=== PATIENT | female | born 2000 | race Caucasian/White ===

== ENCOUNTER 2023-07-18 10:24 | Outpatient (CLI) | payer MEDICAID, SELFPAY ==
--- NOTE | 2023-07-18 10:15 | CRLHL7_ITS ---
For Patients: As a result of the Century Cures Act, medical imaging exams and procedure reports are released immediately into your electronic medical record. You may view this report before your referring provider. If you have questions, please contact your health care provider. INDICATION: BLEEDING IN EARLY COMPARISON: None. TECHNIQUE: Real-time landers-scale imaging of the pelvis was performed. FINDINGS: There is no intrauterine or ectopic . Trace physiologic free fluid noted. Simple right ovarian cyst measuring 2.7 x 2.6 x 2.8 cm. Right ovary measures 4.8 x 3.5 x 3.6 cm. Left ovary measures 3.8 x 3.0 x 2.2 cm. Endometrial thickness 1.3 cm. No ovarian torsion. IMPRESSION: No intrauterine or ectopic . Dictated by Sumeet Fierro MD @ 07/18/2023 11:21:09 AM (Electronically Signed)
== END 2023-07-18 10:25 | disposition home or self-care (01) ==
LOC: US 10:24
PROVIDERS: PCP Nurse Practitioner Family; Visit Provider Registered Nurse
DX: O20.9 Hemorrhage in early pregnancy, unspecified (principal)
CPT/HCPCS: 76817; 84702; 86850; 86900; 86901; 87491; 87591; 93976

== ENCOUNTER 2023-07-20 09:23 | Outpatient (CLI) | payer MEDICAID, SELFPAY | END 2023-07-20 09:24 | disposition home or self-care (01) | LOC: NFLDREF 07-24 11:17 | PROVIDERS: PCP Nurse Practitioner Family; Referring Provider Nurse Practitioner Family; Visit Provider Registered Nurse | DX: O20.9 Hemorrhage in early pregnancy, unspecified (principal) | CPT/HCPCS: 84702 ==

== ENCOUNTER 2023-10-23 12:51 | Outpatient (CLI) | payer MEDICAID, SELFPAY ==
--- NOTE | 2023-10-23 13:00 | CRLHL7_ITS ---
For Patients: As a result of the Century Cures Act, medical imaging exams and procedure reports are released immediately into your electronic medical record. You may view this report before your referring provider. If you have questions, please contact your health care provider. INDICATION: First trimester scan, establish dates. COMPARISON: None. TECHNIQUE: Real-time landers-scale imaging of the pelvis was performed. FINDINGS: Sonographic imaging demonstrates a single living intrauterine gestation. The embryo demonstrates a cardiac rate measuring 106 beats per minute. The embryo`s crown-rump length measurement of 0.4 cm corresponds to a gestational age of 6 weeks 1 day with a sonographic due date of 06/16/2024. There is a normal-appearing yolk sac. There are no gross abnormalities noted within the embryo at this early state of development. The gestational sac has a normal appearance. There is no evidence of a perigestational hemorrhage. The amount of fluid within the sac appears appropriate for gestational age. The cervix is closed. The myometrium appears normal. Corpus luteal cyst right ovary. Normal left ovary. There are no suspicious fluid collections noted in the cul-de-sac. IMPRESSION: Single living intrauterine with sonographic gestational age 6 weeks 1 day and sonographic due date 06/16/2024. heart rate is lower end of normal. Follow-up in 2 weeks recommended. Dictated by Sumeet Fierro MD @ 10/24/2023 10:40:39 AM (Electronically Signed)
== END 2023-10-23 12:52 | disposition home or self-care (01) ==
PROVIDERS: PCP Nurse Practitioner Family; Visit Provider Family Medicine
DX: Z34.91 Encounter for supervision of normal pregnancy, unspecified, first trimester (principal); Z3A.01 Less than 8 weeks gestation of pregnancy
CPT/HCPCS: 76817; 86703; 86706; 86803; 86850; 86900; 86901; 87086; 87340; 87491; 87591

== ENCOUNTER 2023-10-23 14:48 | Outpatient (CLI) | payer MEDICAID, SELFPAY ==
[2023-10-23 19:40] LABS: Chlamydia DNA Amplified* NOT DETECTED (No Detected); GC DNA Amplified* NOT DETECTED (No Detected)
== END 2023-10-23 14:49 | disposition home or self-care (01) ==
PROVIDERS: PCP Nurse Practitioner Family; Visit Provider Registered Nurse
DX: Z34.91 Encounter for supervision of normal pregnancy, unspecified, first trimester (principal); Z3A.01 Less than 8 weeks gestation of pregnancy
CPT/HCPCS: 86592; 86703; 86704; 86706; 86762; 86787; 86803; 86850; 86900; 86901; 87086; 87340; 87491; 87591

== ENCOUNTER 2023-12-18 10:58 | Outpatient (CLI) | payer MEDICAID, SELFPAY | END 2023-12-18 10:59 | disposition home or self-care (01) | LOC: NFLDREF 10:59 | PROVIDERS: PCP Nurse Practitioner Family; Visit Provider Obstetrics & Gynecology | DX: O26.892 Other specified pregnancy related conditions, second trimester (principal) | CPT/HCPCS: 87086 ==

== ENCOUNTER 2024-01-29 09:02 | Outpatient (CLI) | payer MEDICAID, SELFPAY ==
--- NOTE | 2024-01-29 09:08 | US_ITS ---
Patient: ELIN JOCELYN Facility:?[facility] Patient ID:?[id number] Site Patient ID:?[id number]. Site :?[id number] Study:?US-OB Pelvis BFAS-01/29/2024 10:20:31 AM Ordering Physician:?LENNY FLEMING Final Report: OB ULTRASOUND 01/29/2024 CLINICAL HISTORY: anatomy survey. COMPARISON: 10/23/2023. FINDINGS: GA: 20 weeks 1 day. VINEET by LMP: 06/16/2024. CERVIX: Cervix: Visualized. Technique: TA. PLACENTA/CORD - TA Posterior. Placenta tip to internal os: 3.5 cm. Umbilical cord: 3 vessel. Placental insertion: Central. OBSERVED STRUCTURES: Calvarium/Spine: Cerebellum, 2 cm, 20 weeks 2 days, cisternal magna 4.1 mm, nuchal fold, 2.1 mm, lateral ventricles 6.8 mm, CSP, Midline falx, choroid plexus, spine normal. Abdomen: Stomach, abd cord insert, urinary bladder, kidneys, diaphragm. Face: Nose/Lips, orbital view, profile normal. Limbs: Upper extremities, lower extremities, hands, feet normal. Vascular: 4 chamber heart, LVOT, RVOT, 3VV, 3 VTV normal. BPD BDP: 4.6 cm, 19 weeks 5 days. 33% HC: 16.8 cm, 19 weeks 3 days. 15% AC: 15.4 cm, 20 weeks 4 days. 58% FL: 3.4 cm, 20 weeks 5 days. 64% heart rate: 138 bpm. Age by this US: 20 weeks 1 day. VINEET by this US: 06/16/2024. EFW: 357 g, 13 oz. Percentile by VINEET: 66%. MPRESSION: 1. Measurements are consistent with dates. Good interval growth since the prior exam. 2. Normal anatomic survey. Dale Mijares M.D. Body/Diagnostic Radiologist [email or web address]/gil D& Transcribed: 3:25 pm DW/Dictated by: Dale Mijares MD @ 01/29/2024 3:00:00 PM Signed by:?Dale Mijares MD @01/29/2024 3:39:26 PM (Electronic Signature)
== END 2024-01-29 09:03 | disposition home or self-care (01) ==
LOC: US 09:03
PROVIDERS: PCP Nurse Practitioner Family; Visit Provider Obstetrics & Gynecology
DX: Z34.92 Encounter for supervision of normal pregnancy, unspecified, second trimester (principal); Z3A.20 20 weeks gestation of pregnancy
CPT/HCPCS: 76805

== ENCOUNTER 2024-03-25 08:55 | Outpatient (CLI) | payer MEDICAID, SELFPAY | END 2024-03-25 08:56 | disposition home or self-care (01) | LOC: NFLDREF 03-27 07:17 | PROVIDERS: PCP Nurse Practitioner Family; Referring Provider Nurse Practitioner Family; Visit Provider Obstetrics & Gynecology | DX: Z34.93 Encounter for supervision of normal pregnancy, unspecified, third trimester (principal); Z3A.28 28 weeks gestation of pregnancy | CPT/HCPCS: 86592 ==

== ENCOUNTER 2024-04-21 10:12 | Outpatient (CLI) | payer MEDICAID, SELFPAY ==
--- NOTE | 2024-04-21 10:15 | CRLHL7_ITS ---
For Patients: As a result of the Century Cures Act, medical imaging exams and procedure reports are released immediately into your electronic medical record. You may view this report before your referring provider. If you have questions, please contact your health care provider. OBSTETRICAL ULTRASOUND LIMITED, 04/21/2024 INDICATION: Gestational diabetes mellitus. VINEET by LMP: 06/16/2024 Gestational age: 32 weeks 0 days COMPARISON: 01/29/2024, 10/23/2023. TECHNIQUE: Transabdominal obstetrical ultrasound. FINDINGS: Gestation: Single Cervix: Not visualized positioning: Transverse Amniotic fluid: 6.8 cm SDP Placenta position: Posterior heart rate: 165 bpm BIOMETRY: BPD: 8.4 cm, 33 weeks 6 days, 88% HC: 30.8 cm, 34 weeks 2 days, 76% AC: 30.2 cm, 34 weeks 1 day, 95% FL: 6.5 cm, 33 weeks 2 days, 73% FL/AC Ratio: 21.38% HC/AC ratio: 1.02 EFW: 2307 grams, 5 lbs. 1 oz. age by this ultrasound: 33 weeks 6 days VINEET by this US: 06/03/2024 Percentile by VINEET: 92% IMPRESSION: Estimated weight is now at the 92nd percentile. Abdominal circumference is at the 95th percentile. VICTORINA TITUS M.D. Body/Diagnostic Radiologist [email or web address] Transcribed: 12:[address]/Dictated by: Victorina Titus MD @ 04/22/2024 10:53:00 AM (Electronically Signed)
== END 2024-04-21 10:13 | disposition home or self-care (01) ==
LOC: US 10:13
PROVIDERS: PCP Nurse Practitioner Family; Visit Provider Obstetrics & Gynecology
DX: O24.419 Gestational diabetes mellitus in pregnancy, unspecified control (principal); Z3A.32 32 weeks gestation of pregnancy
CPT/HCPCS: 76816

== ENCOUNTER 2024-05-20 09:40 | Outpatient (CLI) | payer MEDICAID, SELFPAY ==
--- NOTE | 2024-05-20 09:45 | CRLHL7_ITS ---
For Patients: As a result of the Century Cures Act, medical imaging exams and procedure reports are released immediately into your electronic medical record. You may view this report before your referring provider. If you have questions, please contact your health care provider. INDICATION: GDM TECHNIQUE: Real time landers scale imaging of the fetus. COMPARISON: 04/21/2024 FINDINGS: Sonographic imaging demonstrates a single living intrauterine gestation. Fetus demonstrates a regular cardiac rate of 139 beats per minute. Fetus has a vertex position. The placenta lies right posterior. Amniotic fluid volume appears normal and there is a single deepest pocket of 4.7 cm. The estimated weight is 3633gm which lies at the greater than 97th %. On the prior OB ultrasound dated 04/21/2024 the estimated weight was at the 92nd percentile. BPD 78th percentile. HC 59th percentile. AC greater than 97th percentile. FL 52nd percentile. The fetus was active and demonstrated normal breathing movements. There was normal flexion and extension of the trunk and extremities. IMPRESSION: Normal biophysical profile score 8/8. Sonographic gestational age 37 weeks 6 days and sonographic due date of 06/04/2024. Sonographic age 12 days ahead of the clinical age. Estimated weight greater than 97th percentile. Abdominal circumference greater than 97th percentile. Dictated by Sumeet Fierro MD @ 05/20/2024 10:33:04 AM (Electronically Signed)
== END 2024-05-20 09:41 | disposition home or self-care (01) ==
PROVIDERS: PCP Nurse Practitioner Family; Visit Provider Obstetrics & Gynecology
DX: O24.419 Gestational diabetes mellitus in pregnancy, unspecified control (principal); Z3A.37 37 weeks gestation of pregnancy
CPT/HCPCS: 76816; 76819; 87081; 87653

== ENCOUNTER 2024-06-13 07:03 | Inpatient (IN) | payer MEDICAID, SELFPAY ==
[2024-06-13] VITALS (39 sets, daily range): BP systolic 104–171; BP diastolic 51–100; PULSE 50–88; RESP 16; TEMP 36.4–36.8; O2SAT 96–99; BMI 42.3
[2024-06-13] MEDS: LACTATED RINGERS 1000 ML 1,000 ML 125 ML IV ×2 (08:02→09:18)
[2024-06-13] MEDS: OXYTOCIN 30 unit/500 ML in NS 30 UNIT/500 ML BAG IVPB (08:03)
[2024-06-13 08:04] LABS: Basophils Absolute Auto 0.01 K/uL (0.00-0.30); Basophils Percent Auto 0.1 % (0.0-3.0); Eosinophils Absolute Auto 0.13 K/uL (0.00-0.50); Eosinophils Percent Auto 1.3 % (0.0-7.0); Hematocrit 33.4 % (33.0-51.0); Hemoglobin* 10.9 gm/dL (12.0-16.0); Immature Granulocytes Abs Auto 0.04 K/uL (0.00-0.30); Immature Granulocytes Pct Auto 0.4 %; Lymphocytes Absolute Auto 2.21 K/uL (0.90-2.90); Lymphocytes Percent Auto 22.8 % (20-44); Mean Corpuscular HGB Conc 33 gm/dL (32-36); Mean Corpuscular Hemoglobin 29 pg (26-34); Mean Corpuscular Volume 87 fL (80-100); Monocytes Percent Auto 4.7 % (0.0-11.0); Neutrophils Absolute Auto 6.86 K/uL (1.7-7.0); Neutrophils Percent Auto 70.7 % (42.0-72.0); Platelet Count* 181 K/uL (140-440); RDW Coefficient of Variation % 13.2 % (11.5-15.5); Red Blood Count 3.82 m/uL (4.00-5.20); White Blood Count* 9.71 K/uL (4.50-11.00)
[2024-06-13 08:09] LABS: Slide Review Reflex No
--- NOTE | 2024-06-13 08:33 | P.LDBA_ITS ---
Subjective History of Present Illness Time Seen by Provider: 08:33 Date Seen: 06/13/24 Narrative: Patient is being admitted to Labor and Delivery for schedule IOL but found to be in spontaneous labor when she arrived. She is a 23 year old at 39.4 weeks gestation. Her full history and physical was dictated by Dr. Liang on 05/27/24. Please see this for details. Active movement. Denies LOF, vaginal bleeding or abnormal vaginal discharge. Severo Q2-3 minutes painfully. Requesting epidural. Discussed prioritizing her epidural and then reassess her labor to see if she needs pitocin or AROM. Specific Issues/Plans G 3 P 1011 Spouse: Saran Knight H&P by CGM on 05/27/24 # GDMA1 (1h GTT 185) * Nutrition referral * QID BS monitoring * Growth US every 4 weeks * Delivery @39 0/7 - 40 6/7 weeks #Suspected macrosomia * History of macrosomia: 9 lb, 8 oz with first baby. No shoulder dystocia. OP and forceps assisted. * Recommended induction of labor at 39-40 weeks gestation, patient considering # History of anxiety and depression. Stable at 1st OB. Struggled with depression. Not taking an SSRI currently. Not seeing therapist. Declines therapy. Will consider SSRI at end of . # BMI 36 Hemoglobin A1c: 5.6 Consider weekly BPP and/or NST starting at 37 weeks Recommend daily baby aspirin starting at 12 weeks to reduce risk of preeclampsia due to BMI and the patient's sister with history of preeclampsia. # Will be due for Pap Imagin week US on 04/21: 2307g at 92%ile AC 95%ile. SDP 6.8cm. FHR 165. Growth at 36 weeks on 05/20/24: 05/20/24: cephalic, SDP 4.7, EFW 3633 g = 8 lbs, >97&, AC>97%, BPD 78%, HC 59% Flu: Completed at 1st OB visit. Covid: Booster given a 1st OB visit. TDAP: 04/07/2024 OB - Problem Based A/P Additional Plan (1) macrosomia affecting management of mother, antepartum: Status: Acute (2) Gestational diabetes mellitus (GDM) affecting , antepartum: Status: Acute (3) Anemia affecting : Status: Acute (4) : Status: Acute (5) Anxiety: Status: Acute (6) Depression: Status: Acute OB Exam Physical Exam Vital signs: Temp Pulse BP Pulse Ox 97.6 F 58 L 136/85 98 06/13/24 07:33 06/13/24 07:58 06/13/24 07:58 06/13/24 07:33 Narrative: Physical exam: General: Breathing through labor Psych: Alert and oriented x3, full affect HEENT: Normocephalic, atraumatic Lungs: Unlabored breathing Neuro: No focal deficit. Mentating appropriately Pelvic exam: /-1 per RN report
[2024-06-13] MEDS: ROPIVACAINE 0.2% 100 ml 100 ML 12 MG EPIDURAL (08:43)
[2024-06-13] MEDS: BUPIVACAINE 0.25% PF 10 ML 10 ML ML EPIDURAL (08:43)
--- NOTE | 2024-06-13 09:02 | P.ANBPRC_ITS ---
[facility] Medical History Dysuria ?R30.0 - Dysuria (ICD-10) Cellulitis of right ankle ?L03.115 - Cellulitis of right lower limb (ICD-10) Family History Mother Uterine cancer Brother Diabetes Aunt Breast cancer Social History What is your current living situation?: I presently have a place to live Problems where you live: no known problems In the past 12 months, utilities in danger of being shut off: no In past 12 months, lack of transportation kept you from medical appts, meetings, work, or getting things needed for daily living: no In the past 12 mos, have been you worried that your food would run out before you had money to buy more?: never true In the past 12 mos, the food you bought just didn't last and you didn't have money to buy more?: never true Smoking Status: Former smoker How often does anyone, including family, friends and others, physically hurt you : never How often does anyone, including family, friends and others, insult or talk down to you: never How often does anyone, including family, friends and others, threaten you with harm: never How often does anyone, including family, friends and others, scream or curse at you: never Little interest or pleasure in doing things: not at all Feeling down, depressed, or hopeless: not at all Meds Home Medications and Allergies Home Medications ?Medication ?Instructions ?Recorded ?Confirmed ?Type docosahexaenoic acid 200 mg mg PO 10/23/23 06/09/24 History capsule ( DHA) adapalene 0.3 % topical gel 1 applic topical QPM 11/22/23 06/09/24 History clindamycin phosphate 1 % lotion 1 applic topical QDAY 11/22/23 06/09/24 History Allergies Allergy/AdvReac Type Severity Reaction Status Date / Time Latex, Natural Rubber Allergy Mild hives Verified 06/09/24 08:50 Results Labs Labs: Laboratory Results - last 24 hr 06/13/24 07:54 WBC 9.71 RBC 3.82 L Hgb 10.9 L Hct 33.4 MCV 87 MCH 29 MCHC 33 RDW Coeff of Case 13.2 Plt Count 181 Neut % (Auto) 70.7 Lymph % (Auto) 22.8 [place] % (Auto) 4.7 Eos % (Auto) 1.3 Baso % (Auto) 0.1 Neut # (Auto) 6.86 Lymph # (Auto) 2.21 [place]ingo # (Auto) 0.50 Eos # (Auto) 0.13 Baso # (Auto) 0.01 Abs Immat Gran (auto) 0.04 Imm/Tot Granulo (auto) 0.4 Vital Signs Vital Signs: Last Vital Signs Temp 97.6 F 06/13/24 07:33 Pulse 77 06/13/24 08:57 BP 126/74 06/13/24 08:57 Pulse Ox 99 06/13/24 08:44 Anesthesia Procedures Epidural Insertion Patient Location: OB Start Time: 08:30 Stop Time: 09:00 Start Date: 06/13/24 Stop Date: 06/13/24 Reason for Block: procedure for pain Patient Position: sitting Performed By: Janny Jay Preanesthetic Checklist: IV checked, risks and benefits discussed, monitors and equipment checked, timeout performed and anesthesia consent Prep: chlorhexidine gluconate Monitoring: blood pressure monitoring, continuous pulse oximetry and heart rate Approach: midline Vertebral Space: lumbar (1-5) Epidural Technique: TOM saline Needle Type: Tuohy needle Injection Technique: continuous catheter Needle gauge: 17 Needle Length (cm): 10 cm Needle Insertion Depth (cm): 9 Catheter Gauge: 19 Catheter Type: multi-orifice Catheter at skin depth (cm): 14 Test Dose Result: negative and lidocaine 1.5% with epinephrine 1 to 200,000
--- NOTE | 2024-06-13 11:45 | PM.OBPNL ---
Subjective Time Seen by Provider: 11:45 Date Seen: 06/13/24 Objective Vital Signs: Last Vital Signs Temp 97.5 F L 06/13/24 11:21 Pulse 79 06/13/24 11:39 BP 127/76 06/13/24 11:39 Pulse Ox 98 06/13/24 11:10 Pelvic Exam Dilation (cm): 6 Effacement (%): 90 Station: 0 Comments: Wet perineum. Questionable SROM. Forebag noted on exam and AROM performed at 1035. Clear fluid. Assessment Status: Category l Heart Rate Baseline: 130 Clinical Research Physician Variability: Moderate (6-25) Monitor Accelerations: Present Monitor Decelerations: None
--- NOTE | 2024-06-13 12:24 | W.PM.VAGDEL1 ---
Procedure Delivery date: 06/13/24 Procedure Done: Global Procedure Details: Katy is a 23 year-old G3 P 1011 admitted on 06/13/24 at 39 and 4/7 weeks gestation for scheduled induction of labor but found to be in spontaneous labor upon arrival. Cervical exam on admission was 4 cm/60 % effaced/-1 station with membranes intact in vertex presentation. Contractions were every 2-3 minutes. GBS negative AROM occurred at 1035 on 06/13/24 with clear fluid. Labor Analgesia: Epidural Pitocin: Only in the 3rd stage Labor onset: June 13 at 0700 Complete: June 13 at 1054 Pushing: June 13 at 1104 heart tones during second stage were Cat II, prolonged deceleration after each push requiring maternal repositioning to left lateral decubitus position for resuscitative measures. Moderate variability. Positive accelerations. Recovery after repositioning. Expeditious delivery anticipated. At 1113 a viable female delivered in vertex OA presentation via spontaneous vaginal delivery. Infant was placed on maternal abdomen. Cord was clamped and cut after a 30-60 second delay. Nose and mouth were bulb suctioned. Infant weight: Pending. 8 at 1 minute and 8 at 5 minutes. Shoulder dystocia: No. Nuchal cord: Tight nuchal cord x 1. Reduced at Perineum. Placenta delivered spontaneously and complete at 1117 with a 3 vessel cord. Complications: None. Mother and were stable after delivery. Laceration(s): 1st degree perineal, repaired with 2-0 chromic. Sponge and needles counts are correct. Mother and were stable at the time of this note. Events: Labor Augmentation Intrapartal Events: Labor Augmentation Delivery augmentation: rupture of membranes (1035) Delivery monitor: external FHT Route of delivery: Indication for instrumentation: nonreassuring FHR tracing Episiotomy description: None Laceration description: Perineal - 1st Degree Delivery repair: Chromic Estimated blood loss (mL): 50 Anesthesia type: Epidural Disposition: floor Complications: None [place] Infant Gender: Female presentation: vertex Placental Delivery Description: Spontaneous Cord Description: 3 Vessels, Nuchal Cord, Tight and Reduced
[2024-06-13 12:43] LABS: Hematocrit 34.6 % (33.0-51.0); Hemoglobin* 11.1 gm/dL (12.0-16.0); Mean Corpuscular HGB Conc 32 gm/dL (32-36); Mean Corpuscular Hemoglobin 28 pg (26-34); Mean Corpuscular Volume 88 fL (80-100); Platelet Count* 194 K/uL (140-440); Red Blood Count 3.92 m/uL (4.00-5.20); White Blood Count* 10.66 K/uL (4.50-11.00)
[2024-06-13 12:56] LABS: Slide Review Reflex No
[2024-06-13 12:59] LABS: Aspartate Amino Transferase* 19 U/L (12-35); Creatinine* 0.6 mg/dL (0.5-1.5); Estimated Glomerular Filt Rate 128 ml/min
[2024-06-13 13:00] LABS: Alanine Aminotransferase* 9 U/L (4-35); Blood Urea Nitrogen* 14 mg/dL (5-24)
[2024-06-13] MEDS: ACETAMINOPHEN 500 MG TABLET 1000 MG PO ×2 (16:48→23:13)
[2024-06-13] MEDS: IBUPROFEN 600 MG TABLET PO (19:37)
[2024-06-14 04:30] VITALS: BP 141/82; PULSE 57; RESP 16; TEMP 36.6; O2SAT 97
[2024-06-14] MEDS: IBUPROFEN 600 MG TABLET PO (06:08)
[2024-06-14 07:14] LABS: Hemoglobin* 10.5 gm/dL (12.0-16.0)
[2024-06-14 08:07] VITALS: BP 113/75; PULSE 65; RESP 16; TEMP 36.6; O2SAT 97
--- NOTE | 2024-06-14 10:53 | P.DS_ITS ---
DS: Providers Provider Date Seen: 06/14/24 Date of admission: 06/13/24 07:03 Primary care physician: Rosalba Irby CNP Admitting Clinician: Kinsey Bailey MD Attending Physician on discharge: Kinsey Bailey MD Date of Discharge: 06/14/24 DS: Diagnosis Discharge Diagnosis (1) History of gestational diabetes: Status: Acute Problem details: 2 hour GTT at 6 weeks (2) (normal spontaneous vaginal delivery): Status: Acute (3) Gestational hypertension without significant proteinuria, : Status: Acute (4) Anemia: Status: Acute Exam Narrative: Exam Narrative: General: Pleasant, no acute distress Heart: Regular rate and rhythm, no murmur or gallop Lungs: Clear to auscultation bilaterally Abdomen: Soft, nontender, fundus well below umbilicus Lower extremities: No edema or erythema Const: Vital Signs, click to edit/add: Vital Signs - 24 hr 06/13/24 11:04 06/13/24 11:10 06/13/24 11:19 Temperature Pulse Rate 79 71 Pulse Rate [Pulse Oximeter] Respiratory Rate Blood Pressure 129/87 137/62 Blood Pressure [Le ft Arm] Pulse Oximetry 98 [facility] 11:21 06/13/24 11:39 06/13/24 11:48 Temperature 97.5 F L Pulse Rate 79 52 L Pulse Rate [Pulse Oximeter] Respiratory Rate Blood Pressure 127/76 127/80 Blood Pressure [Le ft Arm] Pulse Oximetry Oxygen Delivery Vt thod 06/13/24 12:03 06/13/24 12:11 06/13/24 12:33 Temperature 98.3 F Pulse Rate 57 L 52 L Pulse Rate [Pulse Oximeter] Respiratory Rate Blood Pressure 132/92 H 142/78 H Blood Pressure [Le ft Arm] Pulse Oximetry Oxygen Delivery Vt thod 06/13/24 12:49 06/13/24 13:03 06/13/24 13:18 Temperature Pulse Rate 55 L 54 L 51 L Pulse Rate [Pulse Oximeter] Respiratory Rate Blood Pressure 133/66 132/78 126/77 Blood Pressure [Le ft Arm] Pulse Oximetry Oxygen Delivery Vt thod 06/13/24 13:33 06/13/24 13:49 06/13/24 14:03 Temperature Pulse Rate 50 L 69 76 Pulse Rate [Pulse Oximeter] Respiratory Rate Blood Pressure 124/75 141/51 H 131/68 Blood Pressure [Le ft Arm] Pulse Oximetry Oxygen Delivery Me thod 06/13/24 16:29 06/13/24 19:47 06/13/24 23:42 Temperature 98.3 F 97.6 F 97.8 F Pulse Rate Pulse Rate [Pulse Oximeter] 60 60 69 Respiratory Rate 16 16 Blood Pressure Blood Pressure [Le ft Arm] 118/75 122/69 133/81 Pulse Oximetry 96 96 98 Oxygen Delivery Me thod Room Air Room Air Room Air 06/14/24 04:30 06/14/24 08:07 Temperature 97.8 F 97.9 F Pulse Rate Pulse Rate [Pulse Oximeter] 57 L 65 Respiratory Rate 16 16 Blood Pressure Blood Pressure [Le ft Arm] 141/82 H 113/75 Pulse Oximetry 97 97 Oxygen Delivery Me thod Room Air Room Air OB - DS: Summary Hospital Course Hospital Course: Katy is a 23-year-old G3 now P 2-0-1-2 woman who is status post normal spontaneous vaginal delivery at 39 weeks, 4 days gestation on 06/13/2024. She gave to a female . She had a first-degree perineal laceration. She was diagnosed with gestational hypertension during her intrapartum course. Ob problem list: # GDMA1 (1h GTT 185) Nutrition referral QID BS monitoring Growth US every 4 weeks Delivery @39 0/7 - 40 6/7 weeks #Suspected macrosomia History of macrosomia: 9 lb, 8 oz with first baby. No shoulder dystocia. OP and forceps assisted. Recommended induction of labor at 39-40 weeks gestation, patient considering # History of anxiety and depression. Stable at 1st OB. Struggled with depression. Not taking an SSRI currently. Not seeing therapist. Declines therapy. Will consider SSRI at end of . # BMI 36 Hemoglobin A1c: 5.6 Consider weekly BPP and/or NST starting at 37 weeks Recommend daily baby aspirin starting at 12 weeks to reduce risk of preeclampsia due to BMI and the patient's sister with history of preeclampsia. Blood pressures since yesterday afternoon have shown occasional mild elevations, but have been mostly normal. Today, on day 1, she is feeling well. She is her infant daughter. She denies any headache, visual changes, right upper quadrant pain. She denies any heavy bleeding. She is tolerating a regular diet. Infant Gender: Female Time Spent with Patient Time attestation: Total time spent providing and/or coordinating discharge services: Discharge Plan Discharge Disposition: Home, Self-Care Date of Admission: 06/13/24 07:03 Attending Provider on Discharge: Marry Seth Primary Care Provider: Rosalba Irby Condition: Stable Anticipated Discharge Date/Time: 06/14/24 10:57 Discharge Medications: New acetaminophen 500 mg Tablet 1,000 mg PO Q6H PRNQty: 0 0RF docusate sodium 100 mg Capsule 100 mg PO DAILY Qty: 0 0RF ibuprofen 600 mg Tablet 600 mg PO Q6H PRNQty: 0 0RF Lanolin (HPA) 100 % Cream 1 applic topical Q1H PRNQty: 0 0RF Continued DHA 200 mg capsule 200 mg PO DAILY adapalene 0.3 % gel 1 applic topical QPM clindamycin phosphate 1 % lotion 1 applic topical QDAY ferrous sulfate 324 mg (65 mg iron) tablet,delayed release (DR/EC) 324 mg PO Q OTHER DAY Qty: 60 0RF No Action (DME) Test Strips Misc See Rx Instructions .MEDSUPPLY Qty: 100 3RF Rx Instructions: Test blood sugar 4 times daily (DME) lancets Misc See Rx Instructions .MEDSUPPLY Qty: 100 3RF Rx Instructions: Test blood sugar 4 times daily. (DME) Blood Glucose Meter Misc See Rx Instructions .MEDSUPPLY Qty: 1 0RF Rx Instructions: As directed Discharge Orders: Discharge Order (Routine); Ordered 06/14/24 Ordered By: Marry Seth Patient Education: OB High Blood Pressure DC, OB Vaginal/Breast Feeding Activity Detail: Nothing per vagina until bleeding stops Discharge Diet: Regular Follow Up Appointments: Rosalba Irby CNP [Primary Care Provider] - Marry Seth MD [Staff Physician] - Forms: [facility] Info Instructions Discharge Comments: Blood pressure check Sunday. 2 and 6 week visits DS:Data Additional Comments Additional comments: Labs from 06/13/2024 at 12:36 p.m.: Hemoglobin 11.1, platelets 194, BUN 14, creatinine 0.6, AST 19, ALT 9 Labs from 06/14/2024: Hemoglobin 10.5
[2024-06-14 13:05] VITALS: BP 109/72; PULSE 59; RESP 16; TEMP 36.4; O2SAT 98
[2024-06-16 01:35] LABS: Rapid Plasma Reagin (RPR) Non Reactive (Non Reactive)
== END 2024-06-14 15:45 | disposition home or self-care (01) | DRG 807 ==
PROVIDERS: Admitting Provider Obstetrics & Gynecology; PCP Nurse Practitioner Family; Visit Provider Obstetrics & Gynecology
DX: O24.420 Gestational diabetes mellitus in childbirth, diet controlled (principal); Z37.0 Single live birth; O13.4 Gestational [pregnancy-induced] hypertension without significant proteinuria, complicating childbirth; O76 Abnormality in fetal heart rate and rhythm complicating labor and delivery; O70.0 First degree perineal laceration during delivery; O36.63X0 Maternal care for excessive fetal growth, third trimester, not applicable or unspecified; O99.02 Anemia complicating childbirth; D64.9 Anemia, unspecified; O99.344 Other mental disorders complicating childbirth; F32.A Depression, unspecified; F41.9 Anxiety disorder, unspecified; Z3A.39 39 weeks gestation of pregnancy
CPT/HCPCS: 01967; 36415; 82565; 84450; 84460; 84520; 85018; 85025; 85027; 86592; 88307; A9270; J0665; J2371; J2795; J7120

== ENCOUNTER 2024-07-25 08:17 | Outpatient (CLI) | payer MEDICAID, SELFPAY ==
[2024-07-27 05:14] LABS: HPV Source Cervix; HPV, High Risk by TMA Not Detected
== END 2024-07-25 08:18 | disposition home or self-care (01) ==
PROVIDERS: Registered Nurse; PCP Nurse Practitioner Family; Referring Provider Nurse Practitioner Family; Visit Provider Physician Assistant
DX: Z12.4 Encounter for screening for malignant neoplasm of cervix (principal); Z86.32 Personal history of gestational diabetes
CPT/HCPCS: 82947; 82950; 87624; 87625; 88141; 88142

== ENCOUNTER 2024-10-09 06:00 | Day surgery (SDC) | payer MEDICAID, SELFPAY ==
[2024-10-09] VITALS (12 sets, daily range): BP systolic 105–152; BP diastolic 51–92; PULSE 50–108; RESP 12–16; TEMP 36.2–36.4; O2SAT 90–96; BMI 35.6
[2024-10-09] MEDS: 0.9 % SODIUM CHLORIDE 500 ML 500 ML 100 ML IV (06:30)
[2024-10-09] MEDS: SODIUM CHLORIDE 0.9 % (FLUSH) 10 ML SYRINGE IVF (06:30)
[2024-10-09 07:10] LABS: HCG Qualitative Serum* Negative (Negative)
--- NOTE | 2024-10-09 07:12 | W.PM.H&PU ---
History & Physical Update History & Physical Update H&P Reviewed and patient assessed: No changes noted H&P Updates: Updated exam: Gen - NAD Heart - Regular rate and rhythm, no murmur, rub or gallop Lungs - CTAB
[2024-10-09] MEDS: BUPIVACAINE 0.25% 30 ML INJECTION (08:15)
--- NOTE | 2024-10-09 08:32 | W.ANESCHARGE ---
Anesthesia Charges Start Date/Time Anesthesia Start Date: 10/09/24 Anesthesia Start Time: 07:15 Stop Date/Time Anesthesia Stop Date: 10/09/24 Anesthesia Stop Time: 08:33
[2024-10-09] MEDS: ONDANSETRON 2 MG/ML inj 4 MG IVP (08:36)
[2024-10-09] MEDS: fentaNYL 100 MCG/2 ML inj 50 MCG IVP (08:43)
--- NOTE | 2024-10-09 09:09 | SUR.PHASEI ---
patient met discharge criteria per anesthesia
--- NOTE | 2024-10-09 09:10 | W.PM.GYNPROC ---
Procedure Note Date of procedure: 10/09/24 Will [facility] bill your pro fee for this procedure?: Yes Pre-op diagnosis: Undesired fertility Post-op diagnosis: Same Procedure: Laparoscopic bilateral salpingectomy Anesthesia: GETA Complications: None Surgeon: Marry Seth MD Estimated blood loss (mL): 5 IV fluids (mL): 400 Urine Output (mL): 100 Pathology: specimen obtained, sent to pathology (bilateral Fallopian tubes) Condition: stable Disposition: same day Findings: 1. Upon pelvic exam under anesthesia, the cervix and vagina were normal in appearance. Uterus was mobile and anteverted, of normal size and texture. There were no palpable adnexal masses. 2. Upon laparoscopy, survey of the upper abdomen revealed a normal appearance to the inferior edge of the liver, gallbladder and stomach. Bowels were grossly normal appearance, as was the appendix. Survey of the pelvis revealed normal appearance to the uterus. Bilateral tubes and ovaries were normal in appearance. The cul-de-sac and bladder reflection were normal in appearance. Procedure Description: Patient was taken to the operating room with IV running. She was positioned in dorsal lithotomy position with her legs fully supported in Yellofin stirrups. General anesthesia was administered. She was prepped and draped in the usual sterile fashion. Bimanual exam was performed for the above-noted findings. Speculum was inserted. A single-toothed uterine manipulator was inserted through the cervix into the lower uterine segment, and affixed to the anterior cervical lip. Speculum was removed. Broussard catheter was placed. Patient's legs were placed in neutral position. Attention was turned to patient's abdomen. The infraumbilical area was infiltrated with small amount of Marcaine. An infraumbilical incision was made with a scalpel and carried through to the underlying layer of fascia with a hemostat. The 5 mm Fios Kii trocar was assembled with laparoscope within, and insufflator attached. While tenting up the abdomen with the help of a Kimberley clamp on the fascia, the trocar was passed through the anterior abdominal wall into the peritoneal cavity. Trocar was removed. Pneumoperitoneum was achieved. Survey of abdomen and pelvis revealed the above-noted findings. Two additional port sites were created. The first was in the patient's left lower quadrant, just superior medial to the left ASIS. The second was a hand's breath superior to and slightly medial to the first. Each was infiltrated with small amount of Marcaine prior to incision. A 5 mm incision was made at each site, making sure the large vessels were out of harm's way. A 5 mm Fios Kii port was inserted at each site, under direct visualization and without complication. The balloon on each of the three ports was inflated, holding each in place. The left tube was elevated. The blood supply was cauterized and transected with the [employer] Live[employer] cautery device. Dissection was carried laterally to medially through the mesosalpinx, and the tube was ultimately cauterized and transected at the left uterine cornua. Hemostasis was noted. Left tube was removed through the port and sent to pathology. This procedure was repeated on the right side, and hemostasis was again noted. Right tube was removed the port and sent to pathology. All instruments were removed from the ports, and pneumoperitoneum was released. The ports were removed. The skin of each port site was closed with a subcuticular stitch of 4-0 Monocryl. Surgical glue was applied above this. With the patient's legs back in lithotomy position, the uterine manipulator was removed. Hemostasis was noted. The Broussard catheter was removed. Postoperative debrief was verbalized with OR staff, including a verification of pathology specimens to be sent as described above. Patient tolerated procedure well and was taken to recovery area in stable condition.
--- NOTE | 2024-10-09 09:26 | W.ANESCHARGE ---
Anesthesia Charges Start Date/Time Anesthesia Start Date: 10/09/24 Anesthesia Start Time: 07:15 Stop Date/Time Anesthesia Stop Date: 10/09/24 Anesthesia Stop Time: 08:33
[2024-10-09] MEDS: ACETAMINOPHEN 500 MG TABLET 1000 MG PO (09:48)
--- NOTE | 2024-10-09 10:29 | SUR.PHASEII ---
Patient and mother verbalized readiness for discharge. Pt and mother said they did not have any questions regarding discharge.
== END 2024-10-09 10:16 | disposition home or self-care (01) ==
LOC: OR 06:03
PROVIDERS: PCP Nurse Practitioner Family; Visit Provider Obstetrics & Gynecology
PROC: (CPT 58661; principal; 2024-10-09 07:15)
DX: Z30.2 Encounter for sterilization (principal)
CPT/HCPCS: 58661; 00840; 36415; 81025; 84703; 86850; 86900; 86901; 88302; A9270; J0330; J0665; J1171; J1885; J2250; J2405; J2704; J3010; J3490; J7030

== ENCOUNTER 2024-10-27 09:57 | Outpatient (CLI) | payer MEDICAID, SELFPAY | END 2024-10-27 09:58 | disposition home or self-care (01) | PROVIDERS: PCP Nurse Practitioner Family; Visit Provider Obstetrics & Gynecology | DX: Z13.220 Encounter for screening for lipoid disorders (principal); Z13.1 Encounter for screening for diabetes mellitus; R63.5 Abnormal weight gain | CPT/HCPCS: 80061; 82947; 84443 ==